=== PATIENT | female | born 1970 | race African-American/Black ===

== ENCOUNTER 2019-08-07 09:30 | Inpatient (IN) ==
[2019-08-07] MEDS ORDERED: NS 1,000 ML IV ONE (09:41)
[2019-08-07] MEDS ORDERED: ZOFRAN IV ONE (09:41)
--- NOTE | 2019-08-07 10:15 | Diag Imaging Result Doc PS360 ---
CHEST-2 VIEWS - 08/07/2019 INDICATION: weakness COMPARISON: 07/14/2017 FINDINGS: The lungs are normally expanded and clear. Heart size and mediastinal contours are normal. No pneumothorax or pleural effusion. IMPRESSION: Negative exam. Electronically signed by Radhames Graham 08/07/2019 10:12 AM
[2019-08-07 10:29] LABS: BASO# 0.02 X1000 (0.0-0.2); BASO% 0.3 % (0.0-0.8); EOS# 0.02 X1000 (0.0-0.7); EOS% 0.3 % (0.0-10.0); HEMOGLOBIN 11.6 g/dL (12.0-16.0); IMM GRAN# 0.01 X1000 (0.0-0.04); IMM GRAN% 0.2 % (0.0-0.5); LYMPH# 0.55 X1000 (1.2-3.4); LYMPH% 9.4 % (20.5-51.1); MCHC 33.1 g/dL (33-37); MCV 90.4 FL (81-99); MONO% 5.1 % (1.7-9.3); MPV 8.7 FL (7.4-10.4); NEUT# 4.94 X1000 (1.4-6.5); NEUT% 84.7 % (42.2-75.2); PLT 286 X1000 (130-400); RBC 3.87 XMIL (4.2-5.4); RDW 12.1 % (11.5-14.5); WBC 5.84 X1000 (4.8-10.8)
[2019-08-07 10:54] LABS: CALCIUM 9.7 mg/dL (8.8-10.2); TOTAL BILIRUBIN 0.5 mg/dL (0.20-1.00)
[2019-08-07 11:19] LABS: URINE SOURCE CLEAN CATCH
[2019-08-07 11:30] LABS: BILIRUBIN URINE NEGATIVE (NEGATIVE); BLOOD URINE NEGATIVE (NEGATIVE); COLOR YELLOW; GLUCOSE URINE NEGATIVE (NEGATIVE); KETONE URINE 10 mg/dL (NEGATIVE); LEUKOCYTES URINE NEGATIVE (NEGATIVE); NITRITE URINE NEGATIVE (NEGATIVE); PROTEIN URINE NEGATIVE (NEGATIVE); SP GRAVITY URINE 1.009; TURBIDITY URINE CLEAR (CLEAR); UROBILINOGEN URINE NORMAL (NORMAL)
[2019-08-07 11:31] LABS: UR EPITHELIAL CELLS <10 /HPF (<10); URINE BACTERIA NEGATIVE /HPF; URINE RBC <10 /HPF (<10); URINE WBC <10 /HPF (<10)
[2019-08-07 11:46] LABS: UR AMPHETAMINES QUAL NONE DETECTED (NONE DETECT); UR BARBITUATES QUAL NONE DETECTED (NONE DETECT); UR BENZODIAZEPIN QUAL NONE DETECTED (NONE DETECT); UR CANNABINOIDS QUAL NONE DETECTED (NONE DETECT); UR COCAINE QUAL NONE DETECTED (NONE DETECT); UR METHADONE QUAL NONE DETECTED (NONE DETECT); UR METHAMPHETAMINE QUAL NONE DETECTED (NONE DETECT); UR OPIATES QUAL PRESUMPTIVE POSITIVE (NONE DETECT); UR OXYCODONE QUAL NONE DETECTED (NONE DETECT); UR PCP QUAL NONE DETECTED (NONE DETECT); UR PROPOXYPHENE QUAL NONE DETECTED (NONE DETECT); UR TCA QUAL NONE DETECTED (NONE DETECT)
--- NOTE | 2019-08-07 12:11 | PROVIDER DOCUMENTATION ---
This chart was entered by Becky Winters Scribe, acting as scribe for Ian Acosta MD. HPI-General Adult - General Chief Complaint: Nausea/Vomiting Stated Complaint: Weakness Time Seen by Provider: 08/07/19 09:31 Source: patient Allergies/Adverse Reactions: Patient Allergies Allergy/AdvReac Type Severity Reaction Status Date / Time No Known Allergies Allergy Verified 08/07/19 09:39 Home Medications: Home Medication List Medication Instructions Recorded Confirmed Last Taken Type Hydrochlorothiazide 25 mg PO DAILY 01/30/16 08/07/19 07/06/17 07:00 History Amlodipine Besylate 5 mg PO DAILY 11/24/16 08/07/19 07/08/17 07:00 History Losartan Potassium 100 mg PO DAILY 08/07/19 08/07/19 Unknown History - History of Present Illness -Gen Adult Nature of Presenting Problems: 49yof presents to ED by EMS cc nausea, vomiting, weakness and decreased appetite for 5 days. Pt reports she is even unable to keep water down. Pt denies CP/SOB/C/F/RAO/dizziness. Pt has hx of HTN, COPD and anxiety. Pt is nontoxic and in no acute distress upon exam. Location of Pain/Injury: reports: generalized Pain Radiation: reports: no radiation Quality of Pain: reports: aching Severity: reports: mild Onset/Duration: reports: 5 days ago Timing: reports: still present, intermittent Context/Activities at Onset: reports: light activity Modifying Factors: improves with: nothing Associated Symptoms: reports: fatigue, loss of appetite, nausea, vomiting, weakness Similar Symptoms Previously?: No Recently seen or treated by another doctor?: No Review of Systems - Adult - REVIEW OF SYSTEMS - ADULT Constitutional: reports: see HPI, fatique. denies: chills, fever Eyes: reports: no symptoms reported Ears, Nose, Mouth & Throat: reports: no symptoms reported Cardiovascular: reports: see HPI. denies: chest pain, palpitations Respiratory: reports: see HPI. denies: cough, shortness of breath Gastrointestinal: reports: see HPI, nausea, vomiting. denies: abdominal pain, constipation, diarrhea Genitourinary: reports: no symptoms reported Musculoskeletal: reports: no symptoms reported Integumentary: reports: no symptoms reported Neurological: reports: see HPI. denies: dizziness/vertigo, headache/migraines Psychiatric: reports: no symptoms reported Endocrine: reports: no symptoms reported Hematologic/Lymphatic: reports: no symptoms reported Allergic/Immunologic: reports: no symptoms reported All Other Systems: Reviewed and Negative Past History - Adult - PAST MEDICAL HISTORY-ADULT Review of Records: reports: Nursing Assessment Review, Medications Reviewed, Social history reviewed & non-contributory. Major Childhood Illnesses: reports: denies history Cardiovascular: reports: denies history Respiratory: reports: COPD Gastrointestinal: reports: denies history Obstetrical/Gynecological: reports: denies history Genitourinary: reports: denies history Musculoskeletal: reports: denies history Neurological: reports: denies history Psychiatric: reports: denies history Endocrine/Immune: reports: denies history Other Conditions: reports: denies history - PRIOR SURGERIES/PROCEDURES Surgical/Procedure History: reports: none - IMMUNIZATION STATUS Childhood Immunizations: See Nurse Assessment Flu Vaccine: See Nurse Assessment - FAMILY HISTORY Family History: reviewed, not pertinent - SOCIAL HISTORY Smoking: denies Physical Exam-General - PHYSICAL EXAM-ADULT Initial Vital Signs Reviewed: Yes - CONSTITUTIONAL General Appearance: appears well, alert, no apparent distress, obese. negative: anxious, combative - EYES Eyes: PERRL/EOMI, pink conjunctivae. negative: photophobia - HEAD, EARS, NOSE, MOUTH & THROAT HENMT: normocephalic/atraumatic, moist mucous membranes. negative: angioedema - NECK Neck: full range of motion, supple, normal inspection - RESPIRATORY Respiratory: chest non-tender, lungs clear, normal breath sounds, no pleuratic chest pain, no respiratory distress, no accessory muscle use. negative: crackles, rales, rhonchi, stridor, wheezing - CARDIOVASCULAR Cardiovascular: normal peripheral pulses, regular rate, rhythm, no edema, no gallop, no JVD, no murmur. negative: bradycardia, tachycardia - GASTROINTESTINAL (ABDOMEN) Abdominal Exam: normal bowel sounds, non tender, soft, no organomegaly, no pulsatile mass. negative: distended, guarding, rigid, rebound - MUSCULOSKELETAL Extremity: normal range of motion, normal inspection. negative: deformity - SKIN Integumentary: normal color, normal turgor, warm/dry. negative: diaphoresis, rash - PSYCHIATRIC Psych/Mental Status: normal mood/affect, oriented x 3. negative: anxious, disheveled Progress - PLAN OF CARE/RESULTS Progress/Plan/Lab Results: Vital Signs - 8 hr 08/07/19 09:33 Temperature 97.5 F L Pulse Rate 80 Respiratory Rate 18 Blood Pressure 121/84 O2 Sat by Pulse Oximetry 98 Orders Category Date Time Status Saline Loc NOW Care 08/07/19 09:44 Active CHEST-2 VIEWS [RAD] Stat Exams 08/07/19 09:42 Ordered CBC WITH ELECTRONIC DIFF [HEME] Stat Lab 08/07/19 09:41 Uncollected COMPREHENSIVE METABOLIC PANEL [CHEM] Stat Lab 08/07/19 09:42 Uncollected TSH Stat Lab 08/07/19 09:42 Uncollected UA NIMS W/REFLEX CULT [URINALYSIS] Stat Lab 08/07/19 09:42 Uncollected URINE DRUG SCREEN PL Stat Lab 08/07/19 09:42 Uncollected 0.9% Sodium Chloride Inj [Ns] 1,000 ml Med 08/07/19 09:41 Active IV 999 mls/hr Ondansetron [Zofran] Med 08/07/19 09:41 Discontinued 4 mg IV NOW ONE Result Diagrams: 08/07/19 10:10 08/07/19 10:10 - XRAY 1 XRAY: Bilateral XRAY Study: Chest Impression: See EMR Report (IMPRESSION: Negative exam. Electronically signed by Radhames Graham 08/07/2019 10:12 AM) - CONSULTS/PCP/HOSPITALIST Notification #1 *Consult/PCP/Hospitalist*: d/w Dr Marshall Time Discussed: 12:10 Consult Disposition: Will see in ED, Admit Departure - Departure Date of Disposition Decision: 08/07/19 Time of Disposition Decision: 12:10 DIAGNOSIS: Hyponatremia Disposition: ADMITTED INPATIENT 09 Certified Medical Emergency: Emergent Condition: Stable Additional Instructions: ED Follow Up Instructions: You have been treated by a care provider in the Emergency Department. These instructions are being provided to you so you can have an understanding of how to care for yourself upon discharge. Upon discharge from the Emergency Department, you are responsible for making arrangements for follow-up care by a physician of your choice. Take all prescribed medications as directed. Return to the Emergency Department immediately for any new or worsening sympto ms. You may call the Physician Referral phone number at [phone] to obtain a list of Physicians who are taking new patients. Referrals and Follow-Ups: None,PCP [Primary Care Provider] - - Critical Care Note This patient required my direct & personal management of CC.: No Attestation - Physician/ PARMINDER Attestation Patient care was provided by Advanced Practice Provider:: No The physician spent face to face time with patient:: Yes Advanced Practice Provider documentation review:: Supervising physician onsite a nd consulted in the evaluation and care of this patient. The physician did have a face to face encounter with the patient. This chart was documented by the indicated scribe, (Becky Winters, Gabriele) and accurately reflects the services I performed and decisions made by me, Ian Acosta MD, as attested by the provider's signature.
[2019-08-07] MEDS ORDERED: M.V.I.-12 10 ML, FOLIC ACID 1 MG, MAGNESIUM SULFATE 1 GM, THIAMINE 100 MG in NS 1,000 ML IV ONE (13:00)
[2019-08-07] MEDS ORDERED: ZOFRAN IV PRN (13:00)
[2019-08-07] MEDS ORDERED: TYLENOL PO PRN (13:00)
[2019-08-07] MEDS: NS 1,000 ML IV SCH (17:33)
--- NOTE | 2019-08-07 17:34 | Diag Imaging Result Doc PS360 ---
EXAM: ABDOMEN FLAT/UPRIGHT HISTORY: N/V h/o stricture TECHNIQUE: Three views COMPARISON: 07/14/2017 FINDINGS: No free air beneath the diaphragm. No organomegaly. No bowel obstruction. No foreign body. No abnormal calcifications. Mild scoliosis with degenerative spine changes. 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 IMPRESSION: No bowel obstruction Electronically signed by Miller Dudley 08/07/2019 5:31 PM
--- NOTE | 2019-08-07 19:59 | HISTORY AND PHYSICAL ---
CHIEF COMPLAINT: Nausea vomiting x5 days. HISTORY OF PRESENT ILLNESS: This is a 49-year-old female with a prior history of hypertension, hypothyroid, diverticulitis with a stricture, status post sigmoid resection in 2018. She presents to the emergency room complaining of nausea, vomiting, and weakness, decreased appetite x5 days. She states this has progressed to the point of not even able to keep water down. She denied any black or bloody vomitus or stools, any fevers or chills. PAST MEDICAL HISTORY: 1. Chronic obstructive pulmonary disease. 2. Anxiety. 3. Hypertension. 4. Diverticulosis. 5. Diverticulitis with stricture in 2018. 6. Colovesical fistula with closure. PAST SURGICAL HISTORY: 1. Sigmoid resection in 2018. 2. Closure of colovesical fistula 2018. 3. . SOCIAL HISTORY: She denies any tobacco or illicit drug use. She does drink alcohol. REVIEW OF SYSTEMS: Discussed with the patient with pertinent positives stated in the HPI. She denied any syncope or dizziness, any chest pain or palpitations, any fevers or chills, night sweats, cough, shortness of breath, any constipation, diarrhea, black or bloody vomitus or stools, any hematuria, dysuria, frequency, urgency. PHYSICAL EXAMINATION: GENERAL: This is a 49-year-old female who is sitting up on the stretcher in the emergency room in no distress. VITAL SIGNS: Blood pressure is 134/90 with a heart rate of 80, respirations 18, temperature is 97.5 degrees with room air saturations 98 to 99 percent. EYES: Pupils equal, round, react to light. EOMs are intact. Sclerae anicteric. HEENT: Head is normocephalic, atraumatic. Mucous membranes are dry. NECK: Supple with trachea midline. CARDIOVASCULAR: Regular rate and rhythm. S1 and S2 appreciated. No murmur. No lower extremity edema. Calves are nontender bilateral with peripheral pulses palpable x4 extremities. PULMONARY: Breath sounds are clear. No increased work of breathing noted. Chest rises and falls symmetric to respirations. GASTROINTESTINAL: Abdomen is soft, nontender, nondistended with bowel sounds in all 4 quadrants. NEUROLOGIC: She is alert and oriented x3. SKIN: Warm and dry. LABS: WBC is 5.8 with hemoglobin 11.6, hematocrit 35, and platelets 286,000. Sodium 123, potassium 4, CO2 19, BUN 8, creatinine 1 with a glucose of 89. TSH is 5.49. Urinalysis is essentially negative. Urine drug screen is presumptive positive for opiates. Chest x-ray reveals negative exam. ASSESSMENT AND PLAN: 1. Nausea and vomiting. 2. Hyponatremia. 3. Hypothyroid. 4. History of diverticular stricture, status post sigmoid resection. PLAN: The patient has been will be admitted to the medical-surgical floor. She will be placed on telemetry. We will give clear liquids as tolerated. Continue with IV hydration, giving a banana bag and normal saline. We use Zofran for nausea. We will obtain a flat and upright, check a CBC, CMP, and magnesium in the morning. Plan was discussed with Dr. Marshall. Further treatments pending hospital course. Dictated by JEREMIAH Díaz for Hector Marshall MD cc: JEREMIAH Díaz MD
--- NOTE | 2019-08-07 20:39 | HISTORY AND PHYSICAL ---
CHIEF COMPLAINT: Nausea and vomiting. HISTORY OF PRESENT ILLNESS: Patient is a 49-year-old female who presented to the hospital with significant nausea, vomiting, abdominal pain, weakness, decreased appetite for the past 5 days and that she has been unable to keep anything down, including water. Denies any true chest pain, shortness of breath. Denies fevers. Denies headaches, blurred vision. Denies any focalized weakness. States she does have a history of hypertension, anxiety. ALLERGIES: No known drug allergies. MEDICATIONS: Hydrochlorothiazide, Norvasc 5, losartan 100. PAST MEDICAL HISTORY: COPD, anxiety, hypertension. FAMILY HISTORY: Noncontributory. SOCIAL HISTORY: Patient denies smoking. Denies alcohol or illicit drug use. REVIEW OF SYSTEMS: As noted above. Denies any cough, congestion. Denies melena, hematochezia, hemoptysis or hematemesis. Denies skin rashes. Does not check her weight on any regular basis. Denies orthopnea, PND, chest pain, headaches, blurred vision, or focalized weakness. PHYSICAL EXAMINATION: VITAL SIGNS: Temp 97.5 degrees, pulse 90, respiratory rate 18, BP 121/84, sat 98% on room air. GENERAL: Patient is awake, alert, currently in no distress. She is pleasant to talk with but is ill appearing. HEENT: Normocephalic. NECK: Supple. CARDIOVASCULAR: Regular rate. CHEST: Clear. ABDOMEN: Soft, diffusely tender. EXTREMITIES: Moves all extremities. NEUROLOGIC: No changes. ASSESSMENT: 1. Hyponatremia. Sodium is 123. 2. Metabolic acidosis. 3. Hyperchloremia. 4. Nausea and vomiting. PLAN: We are going to admit her to the hospital. Clear liquids. Zofran, Phenergan as needed, IV fluids. We will hold her oral medications currently as her blood pressures are stable and we will follow. cc: Hector Marshall MD
[2019-08-08] MEDS: NS 1,000 ML IV SCH (02:34)
[2019-08-08 06:50] LABS: HEMATOCRIT 32.3 % (37.0-47.0); HEMOGLOBIN 10.3 g/dL (12.0-16.0); MCH 29.3 PG (27-31); MCHC 31.9 g/dL (33-37); MPV 9.1 FL (7.4-10.4); RBC 3.51 XMIL (4.2-5.4); RDW 12.5 % (11.5-14.5); WBC 10.12 X1000 (4.8-10.8)
[2019-08-08 07:32] LABS: AGAP 13; ALBUMIN 3.6 g/dL (3.5-5.0); ALKALINE PHOSPHATASE 78 U/L (32-104); BUN 6 mg/dL (8-22); CALCIUM 8.9 mg/dL (8.8-10.2); CHLORIDE 93 mmol/L (98-107); COSMO 261; CREATININE 0.9 mg/dL (0.5-0.9); ESTIMATED GFR > 60; GLUCOSE 113 mg/dL (70-104); GOT 18 U/L (10-30); GPT 13 U/L (10-36); MAGNESIUM 2.3 mg/dL (1.5-2.7); POTASSIUM 4.2 mmol/L (3.5-5.1); SODIUM 131 mmol/L (136-145); TCO2 25 mmol/L (25-35); TOTAL PROTEIN 7.9 g/dL (6.3-8.3)
[2019-08-08 14:35] VITALS: BP 119/90
--- NOTE | 2019-08-09 03:18 | DISCHARGE SUMMARY ---
ADMISSION DATE: 08/07/2019 DISCHARGE DATE: 08/08/2019 DIAGNOSES: 1. Hyponatremia. 2. Nausea and vomiting. 3. History of hypothyroid. 4. History of diverticular stricture status post sigmoid resection. DIAGNOSTICS: 1. Chest x-ray revealed negative exam. 2. Abdominal x-ray revealed no bowel obstruction. HOSPITAL COURSE: Ms. Hylton presented to the emergency room complaining of nausea, vomiting, and weakness with decreased appetite x5 days. She stated that it progressed to the point of not be able to keep even water down although she continued to take her blood pressure medications at times. She is found to have a sodium of 123. Diuretics were held. She was given IV hydration and today her sodium was up to 131. She had no vomiting throughout the hospitalization. Her diet was advanced to a regular diet. She ate 100% of breakfast and lunch with no nausea, vomiting, or abdominal pain as well as food brought in from outside. Thankfully, she is ready for discharge. DISCHARGE VITAL SIGNS: Blood pressure is 108/63 with a heart rate of 80, respirations are 18, temperature 98.2 degrees oral with room air saturations 100%. DISCHARGE PHYSICAL EXAMINATION: Cardiovascular: Regular rate and rhythm. S1 and S2 appreciated. She has no lower extremity edema. Calves are nontender with peripheral pulses palpable x4 extremities. Pulmonary: Breath sounds are clear with no increased work of breathing noted. Chest rises and falls symmetrically with respiration. Chest wall is tender to palpation. Gastrointestinal: Abdomen is soft, nontender, nondistended with bowel sounds in all 4 quadrants. Neurologic: She is alert and oriented x3. Skin: Warm and dry. DISCHARGE MEDICATIONS: 1. Amlodipine 5 mg p.o. daily. 2. Losartan 100 mg p.o. daily. 3. Hydrochlorothiazide. She is to hold her dose tomorrow, Sunday, restart Sunday. INSTRUCTIONS: She has been instructed to call her primary care provider Sunday, schedule an appointment to be seen within a week. At this time she will need a BMP redrawn. This can be done by her primary care provider. She is being discharged home in stable condition with family members. She has been instructed to call to be seen sooner or return to the ER for any syncope, dizziness, chest pain, palpitations, any cough, temperature greater than 101, recurring nausea, vomiting, any diarrhea, constipation, black or bloody vomitus or stools, any hematuria, dysuria, frequency, urgency or for any questions or concerns that she may have. Dictated by JEREMIAH Díaz for Hector Marshall MD cc: JEREMIAH Díaz MD
== END 2019-08-08 15:15 | disposition home or self-care (01) | DRG 641 ==
LOC: P.ED 09:30 → P.MEDSURG 17:09
PROVIDERS: ATTEND Family Medicine